=== PATIENT | female | born 1965 | race Caucasian/White ===

== ENCOUNTER → 2018-06-30 | Outpatient (CLI) | payer BC, OTHER ==
[~2018-06-30] VITALS: Ht 170.2 cm; Wt 140.6 kg
[~2018-06-30] MED LIST: DULOXETINE HCL30 MG PO; HYDROCODON-ACE1 EAC8 PO; HYDROCODONE-AP1 EA11 PO; MOBIC15 MG PO; NORCO 7.5-3251 EACH PO; OXYCONTIN10 M1 PO; SYNTHROID125 MC1 PO
[2018-06-30 13:52] VITALS: BP 131/88
--- NOTE | 2018-06-30 14:08 | NUR ---
Pain Clinic Assessment: 1. History of Osteoarthritis: History of Rheumatoid Arthritis: 2. Height: 5 ft. 7 in. 170.2 cm. Weight: 310.0 lb. oz. 140.616 kg. Patient's BMI: 48.5 3. Vital Signs: BP: 131/88 Pulse: 110 Resp: 16 Temp: 02 Sat: 97 ECG Mon: 4. Pain Intensity: 4-5 5. Fall Risk: Dizziness: N Needs help standing or walking: N Fallen in the last 3 months: N Fall risk comments: 6. Patient on Blood Thinner: None 7. History of Hypertension: N 8. Opioid Therapy greater than 6 weeks: Y Opiate Contract Signed: 06/30/18 9. Risk Assessment Tool Provided: 1-LOW 10. Functional Assessment Tool: 36 11. Recreational Drug Use: Never Drug Type: Tobacco Use: Never Smoker Tobacco Type: Amount or Packs/day: How Many Years: Alcohol Use: Yes Frequency: Special Occasions Quant: 1-2 TIMES A YEAR
== END ==
LOC: PAIN 13:38
DX: M54.5 Low back pain (principal); R07.81 Pleurodynia; M79.604 Pain in right leg; M79.605 Pain in left leg; Z79.899 Other long term (current) drug therapy

== ENCOUNTER → 2018-09-27 | Outpatient (CLI) | payer BC, OTHER ==
[~2018-09-27] VITALS: Ht 170.2 cm; Wt 148.7 kg
[~2018-09-27] MED LIST changes: +CALCIUM 600 +1 EAC1 PO; +HYDROCODON-ACE1 EAC5 PO
[2018-09-27 10:02] VITALS: BP 148/83
--- NOTE | 2018-09-27 10:26 | NUR ---
Pain Clinic Assessment: 1. History of Osteoarthritis: Not Applicable History of Rheumatoid Arthritis: Not Applicable 2. Height: 5 ft. 7 in. 170.2 cm. Weight: 327.8 lb. oz. 148.690 kg. Patient's BMI: 51.3 3. Vital Signs: BP: 148/83 Pulse: 101 Resp: 20 Temp: 02 Sat: 97 ECG Mon: 4. Pain Intensity: 3-4 5. Fall Risk: Dizziness: N Needs help standing or walking: N Fallen in the last 3 months: N Fall risk comments: 6. Patient on Blood Thinner: None 7. History of Hypertension: N 8. Opioid Therapy greater than 6 weeks: Y Opiate Contract Signed: 06/30/18 9. Risk Assessment Tool Provided: 1-LOW 10. Functional Assessment Tool: 36 11. Recreational Drug Use: Never Drug Type: Tobacco Use: Never Smoker Tobacco Type: Amount or Packs/day: How Many Years: Alcohol Use: Yes Frequency: Special Occasions Quant: 1-2
--- NOTE | 2018-09-28 08:37 | HPC ---
[facility] [place] [address] PAIN MANAGEMENT CONSULTATION Name: DANNYMISTY [id number] Admission: 09/27/18 ������������������ Attend Phys: Nydia Yi Discharge: ������������������ Date of : 61 Report #: [id number] THIS REPORT FOR: //name// CC: Nydia Yi FAM unknown Physician staff DATE OF SERVICE: 09/27/2018 CHIEF COMPLAINT: Chronic low back pain and bilateral knee pain with osteoarthritis. HISTORY OF PRESENT ILLNESS: This is a very pleasant 53-year-old female who returned to the pain clinic today for discussion of her medications. In June, when she saw Dr. Jacob Barreto, it was decided to taper off her OxyContin. The patient tells me that she is doing fairly reasonable with this decrease, but wondering if she is able to take 10 mg of hydrocodone during the day and 7.5 mg at night. She tells me that she is requiring one and half of her 7.5 several times a day to help get her through her active period. She tells me she did have one month where she was taking one and a half pills 3 times a day and ran out and did go through withdrawal. She had an increased heart rate, did see her primary care doctor who sent her for an echocardiogram, which was normal. The patient then realized that it was probably withdrawal symptoms that were causing all this, not a cardiac event. Since that episode, she has been more careful of taking her medicine more prescribed, but is having increased pain throughout the day and less pain at night, so she is here wondering if we could adjust her dose to prevent withdrawals and keep her active throughout the day. The patient tells me that her pain score is 3-4 today, mostly in her left knee, but does have pain also in her right. She tells me that she is seeing her orthopedic doctor next week. She has had Synvisc injections in knees that have been helpful and is seeking options for other treatment methods for her knees. ALLERGIES: MORPHINE, SULFA, BACTRIM. CURRENT MEDICATIONS: Caltrate 600, vitamin D, hydrocodone 7.5 tablets/325 p.r.n., meloxicam 15 mg daily, Cymbalta 90 mg daily, Synthroid 125 mcg daily. PQRS: 1. Osteoarthritis in her bilateral knees. Denies rheumatoid arthritis. 2. Height is 5 feet 7 inches, weight is 327. BMI is 51. 3. Vital signs: Blood pressure 148/83, pulse is 101, respirations 20, oxygen sat is 97. 4. Pain score 3/4. 5. Denies dizziness. Does not need help walking or standing. Has not fallen in the last 3 months. 6. Blood thinners, she denies and does not take hypertensive medicines. [facility] [address] [place] [address] PAIN MANAGEMENT CONSULTATION Name: DANNYMISTY Room #: REG CL[facility] Ornelas#: [id number] Admission: 09/27/18 ������������������ Attend Phys: Nydia Yi Discharge: ������������������ Date of : 61 Report #: [id number] 7. Opioid therapy is greater than 6 weeks; therefore, an opioid signed contract is on the chart. 8. Her risk assessment tool is low. Her functional assessment is 36. 9. Recreational drug use, she denies. She is not a smoker and occasionally drinks alcohol. We did check the prescription monitoring system. The patient is filling appropriately with her current medications. She did bring her prescription pill bottle with her today and has 58 of hydrocodone 7.5 left. The patient tells me she does safeguard her medications. PHYSICAL EXAMINATION: GENERAL: This is a very pleasant, alert and orientated female who appears her stated age who is morbidly obese, BMI of 51. HEENT: Normocephalic, atraumatic. Extraocular eye muscles are intact. Mucous membranes are moist. EXTREMITIES: The patient moves from sitting to standing positions. She walks with an antalgic gait, mostly due to pain in her knees. She describes this as a continuous aching sensation that is tender to touch. No effusion or swelling noted. ASSESSMENT: 1. Chronic intractable low back pain. 2. Chronic intractable osteoarthritis involving bilateral knees. 3. History of breast cancer. 4. Management of high risk medication under terms of written opioid agreement. We reviewed the fact that opiate medications are being used to provide analgesia adequate to support activities of daily living, not attempting to achieve a specific pain score on the 0-10 Visual Analog Scale. The current opiate medications are providing sufficient analgesia to allow the patient to participate in activities of daily living. The patient is not exhibiting any aberrant behavior suggestive of drug diversion. The patient is not having any adverse reactions to medications. The patient is not suffering from daytime somnolence or mental acuity changes. The patient is managing opiate-induced constipation with appropriate erdk-ifo-hxknrxq agents and dietary considerations. The patient was counseled on concern for caution with operating a motor vehicle while using opiate medications. A physical exam was performed and the patient's functional status was evaluated. All patients with back pain were advised against the bed rest greater than 4 days and were advised to return to normal activities. Pain score assessment was noted and the treatment plan was reviewed with the patient. All current medications, both prescribed and OTC were reviewed and reconciled on the electronic medical record. Tobacco screening was accomplished and smoking cessation was advised when indicated. BMI was noted and diet/exercise modification was recommended for all patients following outside normal parameters. [facility] [address] [place] [address] PAIN MANAGEMENT CONSULTATION Name: MISTY DELGADO [facility] #: [facility] [id number] Admission: 09/27/18 ������������������ Attend Phys: Nydia Yi Discharge: ������������������ Date of : 61 Report #: [id number] I reviewed with the patient today their responsibilities to safeguard prescription medications, reviewed their responsibility to utilize medications only as prescribed by the physician. They are to seek and receive pain medications only from 1 physician group ( [facility]). They are to use 1 pharmacy and keep the clinic informed if they change pharmacies. Their responsibilities include making followup visits in a timely fashion and to avoid abrupt discontinuation of medication usage. Their responsibilities further include bringing their medications (bottles from the pharmacy with residual pills) to the visit for possible confirmation of pill counts and the patient understands it is their responsibility to submit to random drug screens to ensure both that the medications prescribed are present, and that no other controlled substances are present. All prescriptions provided today were generated electronically. PLAN: 1. We discussed treatment options with the patient today. The patient tells me that she was able to decrease off her OxyContin, but still having some issues with pain during the day that is affecting her activities. She is here to request a change in her daily pain medicines. She came with a plan today of wondering if she could take two 10/325 hydrocodone during the day and one 7.5 mg at night. This would keep her below the current morphine mEq of 50, she would be at 27 morphine mEq per day. 2. I discussed with Dr. Barreto. We decided that the patient will be given hydrocodone 10/325, #60 for today and 4-week release. The patient is to continue to take her current 7.5 that she has at home for the next 2 months. The patient will return for a followup visit. At that time, we will start her on hydrocodone 10/325 three tablets a day, enabling her to take half or one tablet at bedtime, but continue her one tablet twice a day when she is active throughout her day. 3. The patient will go and see her orthopedic doctor to see if she is nearing to have replacement of her knees or what options he has for her other than the Synvisc injections that she is getting diminished results from. 4. The patient does tell me that she is set to have a breast augmentation surgery again in January and we will address her pain issues to dealing with her postop pain closer to that appointment. 5. The patient was seen by Dr. Jacob Barreto today who also collaborated care. ��������������������������������������������� <ELECTRONICALLY SIGNED> ���������������������������������������� By: Nydia Yi ��������������������������������������������� 09/28/18 0837 [id number] [id number] Nydia Yi /nusrat
== END ==
LOC: PAIN 07:05
DX: G89.29 Other chronic pain (principal); M54.5 Low back pain; M17.0 Bilateral primary osteoarthritis of knee; Z88.5 Allergy status to narcotic agent; Z88.2 Allergy status to sulfonamides; Z88.1 Allergy status to other antibiotic agents; Z79.899 Other long term (current) drug therapy; Z79.891 Long term (current) use of opiate analgesic; Z85.3 Personal history of malignant neoplasm of breast

== ENCOUNTER → 2018-11-15 | Outpatient (CLI) | payer BC, OTHER ==
[~2018-11-15] VITALS: Ht 170.2 cm; Wt 143.0 kg
[~2018-11-15] MED LIST changes: +CLONIDINE HCL0.1 MG PO; +VOLTAREN GEL 1100 G2 TOP
[2018-11-15 09:57] VITALS: BP 143/98
--- NOTE | 2018-11-15 10:08 | NUR ---
Pain Clinic Assessment: 1. History of Osteoarthritis: Not Applicable History of Rheumatoid Arthritis: Not Applicable 2. Height: 5 ft. 7 in. 170.2 cm. Weight: 315.2 lb. oz. 142.974 kg. Patient's BMI: 49.4 3. Vital Signs: BP: 143/98 Pulse: 119 Resp: 20 Temp: 02 Sat: 98 ECG Mon: 4. Pain Intensity: 6 5. Fall Risk: Dizziness: N Needs help standing or walking: N Fallen in the last 3 months: N Fall risk comments: 6. Patient on Blood Thinner: None 7. History of Hypertension: N 8. Opioid Therapy greater than 6 weeks: Y Opiate Contract Signed: 06/30/18 9. Risk Assessment Tool Provided: 1-LOW 10. Functional Assessment Tool: 36 11. Recreational Drug Use: Never Drug Type: Tobacco Use: Never Smoker Tobacco Type: Amount or Packs/day: How Many Years: Alcohol Use: Yes Frequency: Special Occasions Quant:
--- NOTE | 2018-11-16 14:31 | HPC ---
[facility] [address] [place] [address] PAIN MANAGEMENT CONSULTATION Name: DANNYMISTY [facility] [id number] Admission: 11/15/18 ������������������ Attend Phys: Nydia Yi Discharge: ������������������ Date of : 61 Report #: [id number] THIS REPORT FOR: //name// CC: Nydia Yi FAM unknown Physician staff DATE OF SERVICE: 11/15/2018 CHIEF COMPLAINT: Low back pain and bilateral knee pain with osteoarthritis. HISTORY OF PRESENT ILLNESS: This is a pleasant 53-year-old female who returns to the pain clinic today. She tells us that she is out of her medications. She ran out yesterday. She tells me that her pain had increased in her knees and she was requiring more pain pills. Today, her pain is a 6/10, mostly a constant achy tenderness feeling in her knees, worse with activity and better with rest and medication. She tells me that she has not experienced any withdrawal symptoms currently such as elevated heart rate or nausea or diarrhea. She tells me that some days because she was more active, she took more pain pills and she realized now that she should not have done that, is requesting medication fill today. ALLERGIES: MORPHINE, BACTRIM. CURRENT LIST OF MEDICATIONS: Hydrocodone 10/325 p.r.n., Caltrate, Mobic 15 mg daily, duloxetine 90 mg daily and Synthroid 125 mcg daily. PQRS: 1. She has osteoarthritis in her bilateral knees. Denies any rheumatoid arthritis. 2. Height is 5 feet 7 inches, weight is 315, which is down 12 pounds from her last visit. BMI is 49.4. 3. Vital signs: Blood pressure 143/98, pulse is 119, respirations 20, oxygen sat is 98. 4. Pain score is 6/10. 5. Fall risk: Denies dizziness. Does not need help walking or standing and has not fallen in the last three months. 6. The patient is not on any blood thinners, does not take medicine for hypertension. 7. Opioid therapy is greater than six weeks; therefore, an opioid signed contract is on the chart. Risk assessment tool is low. Functional assessment is 36/70. 8. Recreational drug use: She denies. Not a smoker and occasionally drinks alcohol. We did check the prescription monitoring system. The patient is not due to fill [address] [address] PAIN MANAGEMENT CONSULTATION Name: MISTY DELGADO Room #: REG [facility] Ornelas#: [id number] Admission: 11/15/18 ������������������ Attend Phys: Nydia Yi Discharge: ������������������ Date of : 61 Report #: [id number] until about 2 weeks for her narcotics. There is an opioid agreement on the chart and we will check a urine drug screen in the future. PHYSICAL EXAMINATION: GENERAL: This is a very pleasant, alert and oriented female who is morbidly obese, placing her pain score today at 6/10. HEENT: Normocephalic, atraumatic. Extraocular eye muscles are intact. Mucous membranes are moist. EXTREMITIES: The patient walks with an antalgic gait due to pain in her knees. She moves from sitting to standing without any difficulty. No effusion or swelling noted in her bilateral knees, but they are tender to touch. IMPRESSION: 1. Chronic intractable low back pain. 2. Chronic intractable osteoarthritis involving bilateral knees. 3. History of breast cancer. 4. Management of high-risk medications under terms of written opioid agreement. We reviewed the fact that opiate medications are being used to provide analgesia adequate to support activities of daily living, not attempting to achieve a specific pain score on the 0-10 Visual Analog Scale. The current opiate medications are providing sufficient analgesia to allow the patient to participate in activities of daily living. The patient is not exhibiting any aberrant behavior suggestive of drug diversion. The patient is not having any adverse reactions to medications. The patient is not suffering from daytime somnolence or mental acuity changes. The patient is managing opiate-induced constipation with appropriate iyjq-zuc-eyzssqo agents and dietary considerations. The patient was counseled on concern for caution with operating a motor vehicle while using opiate medications. A physical exam was performed and the patient's functional status was evaluated. All patients with back pain were advised against the bed rest greater than 4 days and were advised to return to normal activities. Pain score assessment was noted and the treatment plan was reviewed with the patient. All current medications, both prescribed and OTC were reviewed and reconciled on the electronic medical record. Tobacco screening was accomplished and smoking cessation was advised when indicated. BMI was noted and diet/exercise modification was recommended for all patients following outside normal parameters. I reviewed with the patient today their responsibilities to safeguard prescription medications, reviewed their responsibility to utilize medications only as prescribed by the physician. They are to seek and receive pain medications only from 1 physician group ([facility]). They are to use 1 pharmacy and keep the clinic informed if they change pharmacies. Their [facility] [address] [place] [address] PAIN MANAGEMENT CONSULTATION Name: MISTY DELGADO Room #: REG CL Mio#: [id number] Admission: 11/15/18 ������������������ Attend Phys: Nydia Yi Discharge: ������������������ Date of : 61 Report #: [id number] responsibilities include making followup visits in a timely fashion and to avoid abrupt discontinuation of medication usage. Their responsibilities further include bringing their medications (bottles from the pharmacy with residual pills) to the visit for possible confirmation of pill counts and the patient understands it is their responsibility to submit to random drug screens to ensure both that the medications prescribed are present, and that no other controlled substances are present. All prescriptions provided today were generated electronically. PLAN: 1. We discussed treatment options with the patient today. The patient reminded that she is to take up to three tablets of her hydrocodone a day and she requires some days occasionally four that means other day, she is needing to take two pills. We gave her 90 pills for the month. I am unsure if her insurance will pay for a refill this early for her medications. She is not due until about 11/25/2018, therefore to prevent any withdrawal symptoms, we will give her clonidine 0.1 mg once a day. The patient instructed to keep an eye on her blood pressure. Currently, it is 143/98 and pulse 119. She should easily be able to tolerate the clonidine 0.1 mg, but if it does go low, then she is instructed to stop this medication. 2. Scripts given for hydrocodone 10/325, #90. This is a slight increase as discussed last visit from 10 in the morning, 10 midday and 7.5 at night. To make things easier with not using two prescriptions, we elected to give her under the guidance of Dr. Barreto hydrocodone 10/325 three times a day, so #90 given for release in a week and in four weeks and in eight weeks. This places the patient at 30 morphine mEq well under the CDC guidelines and also instructed the patient to take them as directed. 3. We discussed the patient's significant osteoarthritis in her knees. She has had injections in the past as well as Synvisc, which has not felt that they have been very helpful. She continues to try and lose weight and has lost 12 pounds since her last visit here. We discussed exercise and water aerobics or just walking in the water to help reduce the effect on her knees when walking. The patient tells me that she has been trying to get in the pool a little more since the summertime. 4. Scripts given also for Voltaren gel. The patient may use this up to four times a day on her bilateral knees and then take her meloxicam as needed. The patient will return in three months' time. 5. I have discussed this patient with Dr. Barreto and reviewed the chart for medication needs. He is available by phone if any additional collaboration is needed today. ��������������������������������������������� <ELECTRONICALLY SIGNED> ���������������������������������������� By: Nydia Yi ��������������������������������������������� 11/16/18 1431 [id number] 1444 Nydia Yi /nusrat
== END ==
LOC: PAIN 06:48
DX: M54.5 Low back pain (principal); M17.0 Bilateral primary osteoarthritis of knee; G89.29 Other chronic pain; Z85.3 Personal history of malignant neoplasm of breast; Z79.891 Long term (current) use of opiate analgesic; Z79.899 Other long term (current) drug therapy; Z88.5 Allergy status to narcotic agent

== ENCOUNTER → 2019-02-10 | Outpatient (CLI) | payer BC, OTHER ==
[~2019-02-10] VITALS: Ht 170.2 cm; Wt 144.7 kg
[~2019-02-10] MED LIST changes: +SYNTHROID112 MC1 PO; -SYNTHROID125 MC1 PO
[2019-02-10 11:18] VITALS: BP 145/100
--- NOTE | 2019-02-10 11:21 | NUR ---
Pain Clinic Assessment: 1. History of Osteoarthritis: Not Applicable History of Rheumatoid Arthritis: Not Applicable 2. Height: 5 ft. 7 in. 170.2 cm. Weight: 319.0 lb. oz. 144.698 kg. Patient's BMI: 50.0 3. Vital Signs: BP: 145/100 Pulse: 102 Resp: 16 Temp: 02 Sat: 96 ECG Mon: 4. Pain Intensity: 6 5. Fall Risk: Dizziness: N Needs help standing or walking: N Fallen in the last 3 months: N Fall risk comments: 6. Patient on Blood Thinner: None 7. History of Hypertension: N 8. Opioid Therapy greater than 6 weeks: Y Opiate Contract Signed: 06/30/18 9. Risk Assessment Tool Provided: 1-LOW 10. Functional Assessment Tool: 36 11. Recreational Drug Use: Never Drug Type: Tobacco Use: Never Smoker Tobacco Type: Amount or Packs/day: How Many Years: Alcohol Use: Yes Frequency: Quant:
--- NOTE | 2019-02-10 16:28 | HPC ---
[facility] [place] [address] PAIN MANAGEMENT CONSULTATION Name: DANNYMISTY Room #: REG [facility] Mio.#: [id number] Admission: 02/10/19 Attend Phys: Nydia Yi Discharge: Date of : 61 Report #: [id number] THIS REPORT FOR: //name// CC: Nydia Ochoa Physician staff HIREN JENSEN DATE OF SERVICE: 02/10/2019 CHIEF COMPLAINT: Low back pain and bilateral knee pain and osteoarthritis. HISTORY OF PRESENT ILLNESS: This is a very pleasant 53-year-old female who returns to the pain clinic today for refill of her medications that she uses to help treat her bilateral knee pain. She is reporting a pain score of 6/10 today, mostly constant achy pain, worse with activity, but better with rest and medications. She reports that she recently underwent a surgery at to have some breast tissue removed on her right breast several weeks ago, it does continue to drain clear drainage per her report. She has followed up with her surgeon about this continued drainage. The patient also reports that they did give her some oxycodone, which the office did call and report to us after her surgery. She also received some Toradol which was very beneficial in helping her knee pain and is requesting that medication today in place of her meloxicam. ALLERGIES: MORPHINE, BACTRIM. CURRENT LIST OF MEDICATIONS: Voltaren gel p.r.n., hydrocodone 10/325 up to 3 times a day, vitamin D3, meloxicam 15 mg daily, Cymbalta 90 mg daily and Synthroid 112 mcg daily. PQRS: 1. She has osteoarthritis in bilateral knees. She denies any rheumatoid arthritis. 2. Height is 5 feet 7 inches, weight is 313/15, BMI is 50. 3. Vital signs: Blood pressure 145/100, pulse is 102, respirations 16, and oxygen sat is 96. 4. Pain score is 6/10. 5. Denies dizziness, does not need help walking or standing, has not fallen in the last 3 months. 6. The patient is not on any blood thinners or medicine for hypertension. 7. Opioid therapy is greater than 6 weeks; therefore, an opiate signed contract is on the chart. Her risk assessment tool is low. Functional assessment is 36/70. 8. Recreational drug use, she denies. She is not a smoker and occasionally drinks alcohol. [address] [address] PAIN MANAGEMENT CONSULTATION Name: MISTY DELGADO [id number] Admission: 02/10/19 Attend Phys: Nydia Yi Discharge: Date of : 61 Report #: [id number] We did check the prescription monitoring system. The patient is filling appropriately from Dr. Barreto except for the medicines that she received postoperatively, which we were informed of by the office. We will check a random drug screen on this patient on her next visit as there is not one on the chart currently. According to the CDC guidelines, the patient is on 15 morphine mEq of medicine per day well below the CDC guidelines. PHYSICAL EXAMINATION: GENERAL: This is a very pleasant and alert and orientated female who is morbidly obese, placing her current pain score at 6/10 today. HEENT: Normocephalic, atraumatic. Extraocular eye muscles are intact. Mucous membranes are moist. BREASTS: I did not examine this per her report. She has small amounts of clear drainage coming from her recent surgery incision. It is covered with a dressing today. EXTREMITIES: The patient walks with antalgic gait. She has significant pain in her bilateral knees that are tender to the touch with no effusion or swelling noted in the bilateral knees today. She moves from sitting to standing without any difficulty. IMPRESSION: 1. Chronic intractable low back pain. 2. Chronic intractable osteoarthritis involving bilateral knees. 3. History of breast cancer. 4. Management of high risk medications under terms of written opioid agreement. We reviewed the fact that opiate medications are being used to provide analgesia adequate to support activities of daily living, not attempting to achieve a specific pain score on the 0-10 Visual Analog Scale. The current opiate medications are providing sufficient analgesia to allow the patient to participate in activities of daily living. The patient is not exhibiting any aberrant behavior suggestive of drug diversion. The patient is not having any adverse reactions to medications. The patient is not suffering from daytime somnolence or mental acuity changes. The patient is managing opiate-induced constipation with appropriate ihjr-qiu-jvfynyd agents and dietary considerations. The patient was counseled on concern for caution with operating a motor vehicle while using opiate medications. A physical exam was performed and the patient's functional status was evaluated. All patients with back pain were advised against the bed rest greater than 4 days and were advised to return to normal activities. Pain score assessment was noted and the treatment plan was reviewed with the patient. All current medications, both prescribed and OTC were reviewed and reconciled on the electronic medical record. Tobacco screening was accomplished and smoking cessation was advised when indicated. BMI was noted and diet/exercise [address] [address] PAIN MANAGEMENT CONSULTATION Name: MISTY DELGADO Room #: REG [facility] Ornelas#: [id number] Admission: 02/10/19 Attend Phys: Nydia Yi Discharge: Date of : 61 Report #: [id number] modification was recommended for all patients following outside normal parameters. I reviewed with the patient today their responsibilities to safeguard prescription medications, reviewed their responsibility to utilize medications only as prescribed by the physician. They are to seek and receive pain medications only from 1 physician group ( [facility]). They are to use 1 pharmacy and keep the clinic informed if they change pharmacies. Their responsibilities include making followup visits in a timely fashion and to avoid abrupt discontinuation of medication usage. Their responsibilities further include bringing their medications (bottles from the pharmacy with residual pills) to the visit for possible confirmation of pill counts and the patient understands it is their responsibility to submit to random drug screens to ensure both that the medications prescribed are present, and that no other controlled substances are present. All prescriptions provided today were generated electronically. PLAN: 1. We discussed treatment options with the patient today. The patient had requested Toradol in place of meloxicam. I explained to her that that is a medication that is only given in short term duration. Unfortunately, we cannot give her that for every day use. The patient states that her knees did not hurt at all when she was taking this Toradol, but will resume her meloxicam and her Voltaren gel as needed. Scripts given today for meloxicam 15 mg, #30 with 5 additional refills for her bilateral knee pain. 2. Hydrocodone 10/325, #90 given for today, 4-week and 8-week release. This again places her at 15 morphine mEq well below the CDC guidelines. 3. The patient is seen in collaboration today with Dr. Jacob Barreto who did see the patient as well. The patient will return in followup in 3 months for medications. <ELECTRONICALLY SIGNED> By: Nydia Yi 02/10/19 1628 1215 [id number] Nydia Yi /nt
== END ==
LOC: PAIN 02-03 09:18
DX: M17.0 Bilateral primary osteoarthritis of knee (principal); G89.4 Chronic pain syndrome; Z85.3 Personal history of malignant neoplasm of breast; Z79.891 Long term (current) use of opiate analgesic; Z88.8 Allergy status to other drugs, medicaments and biological substances; Z79.899 Other long term (current) drug therapy

== ENCOUNTER → 2019-03-28 | Outpatient (CLI) | payer BC, OTHER ==
[~2019-03-28] VITALS: Ht 170.2 cm; Wt 143.8 kg
--- NOTE | ~2019-03-28 | HPC ---
[facility] [place] [address] [place] [address] PAIN MANAGEMENT CONSULTATION Name: DANNYMISTY Room #: REG [facility] Mio.#: [id number] Admission: 03/28/19 Attend Phys: Jacob Barreto MD Discharge: Date of : 61 Report #: [id number] THIS REPORT FOR: //name// CC: Physician staff Jacob JENSEN DATE OF SERVICE: 03/28/2019 Followup visit for chronic low back pain with spondylosis and bilateral knee pain with severe osteoarthritis. The patient is in the pain clinic today for renewal of her pain medication. She is on opioid agreement providing her with oxycodone 10/325, #90 tablets per month. She finds that on several days this is inadequate. The duration of response to the medication is only 4-6 hours. This leaves her in a fair amount of pain later in the day. She tries to break the medications in half. She has been on opioids for a number of years, opioid tolerant. I reviewed records dating back to [address] Reis first initiated some therapies for her. I took over after he left town. Her MME at one time was 67.5. Her current MME is less than half of that. We had a discussion today about other aspects of treatment. She uses nonsteroidal anti-inflammatory gel Voltaren, but has found other anti-inflammatories unhelpful for her osteoarthritis. She uses vitamin D3 and takes Synthroid daily. She does not exercise. I have stressed the importance of daily walking, had a long discussion with her today about the benefits of this activity. She is morbidly obese as well with a BMI that is contributing clearly to her pain. Without regular daily movement, she will not see improvement in fact I would expect that she may see further increases in pain. PQRS REVIEW: 1. Positive for osteoarthritis, particularly of the knees where she has significant pain. 2. Vital Signs: Blood pressure is 123/80, heart rate is 108, respirations 18, O2 sat 96. 3. BMI 49.6. 4. Pain intensity is 7/10. 5. She has not fallen, nor would be considered a fall risk. 6. No blood thinners. 7. No hypertension. 8. Opioid agreement reinitiated in 06/2018. We have confirmed her use of medication through the prescription drug monitoring program. She did receive a prescription of opioid medication after a plastic surgery procedure. [address] [address] PAIN MANAGEMENT CONSULTATION Name: MISTY DELGADO Josh Room #: REG [facility] Ornelas#: [id number] Admission: 03/28/19 Attend Phys: Jacob Barreto MD Discharge: Date of : 61 Report #: [id number] 9. Risk assessment tool for addiction is 1, considered low. 10. Functional assessment score is 36/70 suggesting qoccgeqq-et-wbwelv interference of day-to-day activities. 11. She denies use of tobacco, drinks alcohol occasionally in social setting. PHYSICAL EXAMINATION: She is mildly depressed. Vital signs are as noted above. She moves independently from sitting to standing position. Her gait is markedly antalgic. I examined the scars from her chest from previous surgery. She reports that she may have a retained drain. I could not palpate it. She does have some healing eschar without drainage. I have instructed her to use Bactroban ointment on these. Otherwise appeared to be healing well. There is no evidence of infection. IMPRESSION: 1. Chronic intractable pain secondary to osteoarthritis of the knees bilaterally. 2. Lumbar spondylosis. 3. Chronic intractable pain with opioid agreement. I have agreed to allow her 105 tablets per month. This will give her an additional pill to take on the bad days. We will try to continue to keep her at the lowest effective dose. RECOMMENDATION: I stressed that opioids are not the only answer for her pain that she must take some active role and remaining physically mobile. She is disabled, no longer working and no longer has children in the home. 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 She should have time to be able to initiate some self-directed therapies, both physical, emotional and spiritual to help her with her chronic symptoms. Followup visit planned in 2 months. Prescriptions were initiated for the higher dose. By: [id number] Jacob Barreto MD /nt
[2019-03-28 12:58] VITALS: BP 123/80
--- NOTE | 2019-03-28 12:59 | NUR ---
Pain Clinic Assessment: 1. History of Osteoarthritis: Not Applicable History of Rheumatoid Arthritis: Not Applicable 2. Height: 5 ft. 7 in. 170.2 cm. Weight: 317.0 lb. oz. 143.791 kg. Patient's BMI: 49.6 3. Vital Signs: BP: 123/80 Pulse: 108 Resp: 18 Temp: 02 Sat: 96 ECG Mon: 4. Pain Intensity: 7 5. Fall Risk: Dizziness: N Needs help standing or walking: N Fallen in the last 3 months: N Fall risk comments: 6. Patient on Blood Thinner: None 7. History of Hypertension: N 8. Opioid Therapy greater than 6 weeks: Y Opiate Contract Signed: 06/30/18 9. Risk Assessment Tool Provided: 1-LOW 10. Functional Assessment Tool: 11. Recreational Drug Use: Never Drug Type: Tobacco Use: Never Smoker Tobacco Type: Amount or Packs/day: How Many Years: Alcohol Use: Yes Frequency: Quant:
== END ==
LOC: PAIN 06:51
DX: M17.0 Bilateral primary osteoarthritis of knee (principal); M47.816 Spondylosis without myelopathy or radiculopathy, lumbar region; G89.4 Chronic pain syndrome; Z88.8 Allergy status to other drugs, medicaments and biological substances; Z79.899 Other long term (current) drug therapy

== ENCOUNTER → 2019-05-24 | Outpatient (CLI) | payer BC, OTHER ==
[~2019-05-24] VITALS: Ht 170.2 cm; Wt 147.1 kg
[~2019-05-24] MED LIST changes: +TIROSINT125 MCG PO
[2019-05-24 13:22] VITALS: BP 128/89
--- NOTE | 2019-05-24 13:46 | NUR ---
Pain Clinic Assessment: 1. History of Osteoarthritis: Not Applicable History of Rheumatoid Arthritis: Not Applicable 2. Height: 5 ft. 7 in. 170.2 cm. Weight: 324.2 lb. oz. 147.057 kg. Patient's BMI: 50.8 3. Vital Signs: BP: 128/89 Pulse: 119 Resp: 14 Temp: 02 Sat: 97 ECG Mon: 4. Pain Intensity: 2 5. Fall Risk: Dizziness: N Needs help standing or walking: N Fallen in the last 3 months: N Fall risk comments: 6. Patient on Blood Thinner: None 7. History of Hypertension: N 8. Opioid Therapy greater than 6 weeks: Y Opiate Contract Signed: 06/30/18 9. Risk Assessment Tool Provided: 1-LOW 10. Functional Assessment Tool: 11. Recreational Drug Use: Never Drug Type: Tobacco Use: Never Smoker Tobacco Type: Amount or Packs/day: How Many Years: Alcohol Use: Yes Frequency: Special Occasions Quant:
--- NOTE | 2019-05-25 08:34 | HPC ---
[facility] [place] [place] [address] PAIN MANAGEMENT CONSULTATION Name: DANNYROBBYMISTY Josh [id number] Admission: 05/24/19 Attend Phys: Nydia Yi Discharge: Date of : 61 Report #: [id number] THIS REPORT FOR: //name// CC: Nydia Yi Physician staff Jacob Mahajan DATE OF SERVICE: 05/24/2019 CHIEF COMPLAINT: Chronic low back pain with spondylosis and bilateral knee pain and severe osteoarthritis. HISTORY OF PRESENT ILLNESS: This is a 53-year-old female who returns to the pain clinic today reporting that she is doing quite well on her current medication regimen, rating her pain score at 2/10. Her pain is located in her back and her bilateral knees. She occasionally does complain of some right chest wall pain from previous mastectomy. The patient reports that taking half a pill of hydrocodone at a time with a max of 4 total pills a day is beneficial. Most days, she is able to get by with fewer pain pills. She denies problems with constipation or daytime sleepiness. She reports that she does have increased pain with activity and walking, but again finds the medication very beneficial and would like refills of this medicine today. ALLERGIES: MORPHINE, BACTRIM. CURRENT LIST OF MEDICATIONS: Levothyroxine 125 mcg daily, hydrocodone 10/325 p.r.n., meloxicam p.r.n., diclofenac gel, Caltrate and duloxetine 90 mg daily. PQRS: 1. She has severe osteoarthritis in her bilateral knees. Denies any rheumatoid arthritis. 2. Height is 5 feet 7 inches, weight is 324, BMI is 50. 3. Vital signs: Blood pressure 128/89, pulse is 119, respirations 14, oxygen sat is 97. 4. Pain score is 2/10. 5. Denies dizziness, does not need help walking or standing, has not fallen in the last 3 months. 6. The patient is not on any blood thinners or medicine for hypertension. 7. Opioid therapy is greater than 6 weeks; therefore, an opioid signed contract is on the chart. Risk assessment is low. Functional assessment is 36/70. 8. Recreational drug use, she denies. She is not a smoker and occasionally drinks alcohol. According to the prescription monitoring system, the patient is filling [address] [address] PAIN MANAGEMENT CONSULTATION Name: MISTY DELGADO Room #: REG [facility] Johnson#: [id number] Admission: 05/24/19 Attend Phys: Nydia Yi Discharge: Date of : 61 Report #: [id number] appropriately for her medications in a timely fashion. She is due this weekend for her medications. We will check a random drug screen on her today. Her current morphine milliequivalent dose is 30-40 per day, well below the CDC guidelines. PHYSICAL EXAMINATION: GENERAL: This is alert and orientated, upbeat female today, placing her pain score at 2/10. She is alert and orientated. HEENT: Normocephalic, atraumatic. Extraocular eye muscles are intact. Mucous membranes are moist. MUSCULOSKELETAL: She moves independently from sitting to standing position. She has a slight antalgic gait. She has pain and tenderness in her bilateral knees with no swelling or effusion noted, but tender to the touch. IMPRESSION: 1. Chronic intractable low back pain. 2. Chronic severe osteoarthritis involving bilateral knees. 3. History of breast cancer. 4. Lumbar spondylosis. 5. Complex medical management under terms of written opioid agreement. PLAN: 1. We discussed treatment options with the patient today. The patient finds taking half a pill at a time of her hydrocodone up to a max of 4 total pills a day very beneficial. She does report that the pharmacy did not give her [address] Barreto gave her last month, though they gave her 90 pills of her previous scripts were. She has been utilizing the medicines as he prescribed and will be out this weekend. She is wondering if there is a way to alter that prescription again. She finds this very beneficial and her pain score has decreased and she has been more active with this slightly increased dose. 2. We will E-prescribe medications today of hydrocodone 10/325, #105 for 30 days for today and 4-week release. 3. The patient does deny any daytime somnolence or constipation from this medication. The patient is seen in collaboration today with Dr. Jacob Barreto. The patient will return in 2 months. <ELECTRONICALLY SIGNED> By: Nydia Yi 05/25/19 0834 [id number] [id number] Nydia Yi /nusrat
== END ==
LOC: PAIN 08:21
DX: M17.0 Bilateral primary osteoarthritis of knee (principal); M47.816 Spondylosis without myelopathy or radiculopathy, lumbar region; Z85.3 Personal history of malignant neoplasm of breast; Z79.891 Long term (current) use of opiate analgesic

== ENCOUNTER → 2019-07-14 | Outpatient (CLI) | payer BC, OTHER ==
[~2019-07-14] VITALS: Ht 170.2 cm; Wt 147.1 kg
[2019-07-14 11:13] VITALS: BP 139/100
--- NOTE | 2019-07-14 11:32 | NUR ---
Pain Clinic Assessment: 1. History of Osteoarthritis: Not Applicable History of Rheumatoid Arthritis: Not Applicable 2. Height: 5 ft. 7 in. 170.2 cm. Weight: 324.2 lb. oz. 147.057 kg. Patient's BMI: 50.8 3. Vital Signs: BP: 139/100 Pulse: 95 Resp: 20 Temp: 02 Sat: 99 ECG Mon: 4. Pain Intensity: 4 5. Fall Risk: Dizziness: N Needs help standing or walking: N Fallen in the last 3 months: N Fall risk comments: 6. Patient on Blood Thinner: None 7. History of Hypertension: N 8. Opioid Therapy greater than 6 weeks: Y Opiate Contract Signed: 06/30/18 9. Risk Assessment Tool Provided: 1-LOW 10. Functional Assessment Tool: 11. Recreational Drug Use: Never Drug Type: Tobacco Use: Never Smoker Tobacco Type: Amount or Packs/day: How Many Years: Alcohol Use: Yes Frequency: Quant:
--- NOTE | 2019-07-15 11:04 | HPC ---
[facility] [place] [address] PAIN MANAGEMENT CONSULTATION Name: MISTY DELGADO Room #: REG [facility]..#: [id number] Admission: 07/14/19 Attend Phys: Nydia Yi Discharge: Date of : 61 Report #: [id number] THIS REPORT FOR: cc: HIREN JENSEN Physician not on staff Nydia Yi ~ THIS REPORT FOR: //name// CC: Nydia Yi Physician staff HIREN JENSEN DATE OF SERVICE: 07/14/2019 CHIEF COMPLAINT: Chronic low back pain with spondylosis and bilateral knee pain, and severe osteoarthritis. HISTORY OF PRESENT ILLNESS: This is a pleasant 53-year-old female who returns to the pain clinic today for a refill of her hydrocodone that she uses for her ongoing chronic pain issues. Today, she reports a pain score of 4/10. She reports that most of her pain is in her back and knees, but she also is experiencing right rib chest pain from her recent surgery. She feels that the wound is not healing properly and that has been bothersome. She states that her pain is an aching, tender feeling. Her knee pain is worse with any activity or walking. She does believe that the hydrocodone has been beneficial; she currently is taking 3 to 4 tablets a day. She is going to try over the next few months to decrease back to 3 tablets a day. She is going to buy knee braces for her bilateral knees and try to start walking more as the weather improves to help her lose weight. ALLERGIES: MORPHINE, BACTRIM. CURRENT LIST OF MEDICATIONS: Hydrocodone 10/325 two to 3 times a day, levothyroxine, Mobic, Voltaren gel, calcium, Cymbalta. PQRS: 1. She has osteoarthritis in her knees. Denies any rheumatoid arthritis. 2. Height is 5 feet 7 inches, weight is 324, BMI is 50. 3. Vital signs; blood pressure 139/100, pulse is 95, respirations 20, oxygen sat is 99. 4. Pain score is 4/10. 5. Denies dizziness. Does not need help walking. Has not fallen in the last 3 months. 6. Denies any blood thinners or medicines for hypertension. Her opioid therapy is greater than 6 weeks; therefore, an opioid signed contract is on the chart. Risk assessment tool is low. Functional assessment is 36/70. [address] [address] PAIN MANAGEMENT CONSULTATION Name: MISTY DELGADO Josh Room #: REG [facility] Ornelas#: [id number] Admission: 07/14/19 Attend Phys: Nydia Yi Discharge: Date of : 61 Report #: [id number] 7. Recreational drug use, she denies. She is not a smoker and occasionally drinks alcohol. According to the prescription monitoring system, the patient is filling appropriately for her medications. There is a recent drug screen on the chart that is appropriate as well. According to the CDC guidelines, her morphine mEq is 30 to 40 per day. PHYSICAL EXAMINATION: GENERAL: This is an alert and orientated female who is morbidly obese, placing her current pain score at 4/10. Her affect is appropriate. HEENT: Normocephalic, atraumatic. Extraocular eye muscles are intact. Mucous membranes are moist. CHEST: She does have open lesions on her right chest wall from previous surgeries. No drainage is noted today, slightly reddened. MUSCULOSKELETAL: She moves independently from sitting to standing position. She has antalgic gait. She has pain and tenderness in her bilateral knees with no effusion or swelling noted today. She has tenderness in her lumbosacral region of her back. IMPRESSION: 1. Chronic intractable low back pain. 2. Severe osteoarthritis involving bilateral knees. 3. History of breast cancer. 4. Lumbar spondylosis. 5. Complex medical management under terms of written opioid agreement. We reviewed the fact that opiate medications are being used to provide analgesia adequate to support activities of daily living, not attempting to achieve a specific pain score on the 0-10 Visual Analog Scale. The current opiate medications are providing sufficient analgesia to allow the patient to participate in activities of daily living. The patient is not exhibiting any aberrant behavior suggestive of drug diversion. The patient is not having any adverse reactions to medications. The patient is not suffering from daytime somnolence or mental acuity changes. The patient is managing opiate-induced constipation with appropriate aaky-hfl-cujhcsn agents and dietary considerations. The patient was counseled on concern for caution with operating a motor vehicle while using opiate medications. PLAN: 1. We discussed treatment options with the patient today. The patient is having to pay steven for her 105 hydrocodone pills since her insurance plan is only allowing 90 pills of hydrocodone per month, even with our attempt to do a prior authorization. The patient is willing to pay steven for this medicine again for 2 months; hopefully, after that time period, her pain will have subsided. She will be able to exercise more with the weather, getting better for her to [facility] [address] [place] [address] PAIN MANAGEMENT CONSULTATION Name: MISTY DELGADO Room #: REG [facility] Lieberman.#: [id number] Admission: 07/14/19 Attend Phys: Nydia Yi Discharge: Date of : 61 Report #: [id number] walk outside. She is hopeful to lose some weight in order to be able to have knee surgery so, then, she will hopefully be able to decrease back to 90 pills. This is her plan, so we will continue her dose at 10/325, #105 for 2 additional months. These will be sent electronically by Dr. Jacob Barreto. She is not needing her other medicines that we prescribed for her today. 2. The patient will return in 2 months. I encouraged her to call her oncologist to try and have a referral to the wound clinic at , who she has seen in the past, to address her open incision site of her right breast. She verbalized she will call them today. <ELECTRONICALLY SIGNED> By: Nydia Yi 07/15/19 1104 1206 1357 Nydia Yi /nt
== END ==
LOC: PAIN 05-23 07:27
DX: M17.0 Bilateral primary osteoarthritis of knee (principal); M47.816 Spondylosis without myelopathy or radiculopathy, lumbar region; Z85.3 Personal history of malignant neoplasm of breast; Z88.2 Allergy status to sulfonamides; Z88.6 Allergy status to analgesic agent; Z79.899 Other long term (current) drug therapy

== ENCOUNTER → 2019-09-15 | Outpatient (CLI) | payer BC, OTHER | LOC: PAIN 07:49 | DX: M47.816 Spondylosis without myelopathy or radiculopathy, lumbar region (principal); M19.90 Unspecified osteoarthritis, unspecified site; M17.0 Bilateral primary osteoarthritis of knee; F11.20 Opioid dependence, uncomplicated; Z88.5 Allergy status to narcotic agent; Z88.8 Allergy status to other drugs, medicaments and biological substances; Z85.3 Personal history of malignant neoplasm of breast ==

== ENCOUNTER → 2019-11-10 | Outpatient (CLI) | payer BC, OTHER ==
[~2019-11-10] VITALS: Ht 170.2 cm; Wt 149.9 kg
[~2019-11-10] MED LIST changes: +FLEXERIL PO; +MELOXICAM15 MG PO; +TIROSINT112 MCG PO; -TIROSINT125 MCG PO
[2019-11-10 14:21] VITALS: BP 139/87
--- NOTE | 2019-11-10 14:35 | NUR ---
Pain Clinic Assessment: 1. History of Osteoarthritis: KNEES History of Rheumatoid Arthritis: DENIES 2. Height: 5 ft. 7 in. 170.2 cm. Weight: 330.4 lb. oz. 149.869 kg. Patient's BMI: 51.7 3. Vital Signs: BP: 139/87 Pulse: 103 Resp: 18 Temp: 02 Sat: 97 ECG Mon: 4. Pain Intensity: 4 5. Fall Risk: Dizziness: N Needs help standing or walking: N Fallen in the last 3 months: N Fall risk comments: 6. Patient on Blood Thinner: None 7. History of Hypertension: N 8. Opioid Therapy greater than 6 weeks: Y Opiate Contract Signed: 06/30/18 9. Risk Assessment Tool Provided: 1-LOW 10. Functional Assessment Tool: 11. Recreational Drug Use: Never Drug Type: Tobacco Use: Never Smoker Tobacco Type: Amount or Packs/day: How Many Years: Alcohol Use: Yes Frequency: Quant:
--- NOTE | 2019-11-11 09:14 | HPC ---
[place] [address] PAIN MANAGEMENT CONSULTATION Name: MISTY DELGADO [id number] Admission: 11/10/19 Attend Phys: Nydia Yi Discharge: Date of : 61 Report #: [id number] THIS REPORT FOR: cc: HIREN JENSEN Physician not on staff Nydia Yi ~ CC: Steve Barreto MD DATE OF SERVICE: 11/10/2019 CHIEF COMPLAINT: Chronic low back pain with spondylosis, bilateral knee pain with osteoarthritis. HISTORY OF PRESENT ILLNESS: This is a pleasant 54-year-old female who returns to the pain clinic today for refill of her medications. Today, she is reporting a pain score of 4/10 stating she had a flare last week, she did see her primary care doctor on Thursday because she was having muscle spasms and tension in her upper back. He did prescribe some Flexeril for her as well as physical therapy, which she has not yet started, but she states that she already feels better from taking the Flexeril for several nights. She was able [place] around. She also feels that was beneficial in decreasing some of that pain. The patient normally sees us for her back and knee pain as well as some collarbone sternal pain from previous mastectomies. She is reporting that overall her pain medication is very beneficial in helping with this pain using her arms and movement does increase her pain, but her medication as well as heat and rest are helpful. She denies problems with constipation or daytime sleepiness. ALLERGIES: MORPHINE, BACTRIM. MEDICATIONS: Flexeril 10 mg at bedtime p.r.n., hydrocodone 10/325 up to 4 times a day p.r.n., levothyroxine, meloxicam, Voltaren gel, calcium, omeprazole, and duloxetine. PQRS: 1. She has arthritic changes in her knees. Denies any rheumatoid arthritis. 2. Height is 5 feet 7 inches, weight is 330, BMI is 51. Vital signs; blood pressure 139/87, pulse is 103, respirations 18, oxygen sat is 97%. 3. Pain score is 4/10. 4. Denies dizziness, does not need help walking or standing, has not fallen in the last 3 months. 5. The patient is not on any blood thinners or medicine for hypertension. 6. Her opioid therapy is greater than 6 weeks; therefore, an opioid signed contract is on the chart. Risk assessment tool is low. Functional assessment is 36/70. 7. Recreational drug use, she denies. She is [place] [address] PAIN MANAGEMENT CONSULTATION Name: DANNYMISTY Room #: REG CL Johnson#: [id number] Admission: 11/10/19 Attend Phys: Nydia Yi Discharge: Date of : 61 Report #: [id number] drinks alcohol. According to the prescription monitoring system, the patient is due to fill her medications this week, filling them in a timely fashion from one pharmacy. There is a recent drug screen on the chart that is appropriate as well. According to the CDC guidelines, her morphine mEq is 35 MMEs per day. PHYSICAL EXAMINATION: GENERAL: This is a well-developed, morbidly obese 54-year-old female who is alert and orientated, placing her current pain score at 4/10. HEENT: Normocephalic and atraumatic. Extraocular eye muscles are intact. She is wearing a mask. CHEST: She has mid sternum pain to the right that is tender from previous surgeries. MUSCULOSKELETAL: She moves independently from sitting to standing position. She does have an antalgic gait. She has tenderness in her paraspinal musculature of her thoracic spine and tenderness along the lumbosacral region as well. Pain is increased in her knees with standing, no edema, no effusion noted. IMPRESSION: 1. Chronic intractable low back pain. 2. Severe osteoarthritis involving her bilateral knees. 3. Myofascial pain. 4. History of breast cancer. 5. Lumbar spondylosis. 6. Complex medical management under terms of written opioid agreement. We reviewed the fact that opiate medications are being used to provide analgesia adequate to support activities of daily living, not attempting to achieve a specific pain score on the 0-10 Visual Analog Scale. The current opiate medications are providing sufficient analgesia to allow the patient to participate in activities of daily living. The patient is not exhibiting any aberrant behavior suggestive of drug diversion. The patient is not having any adverse reactions to medications. The patient is not suffering from daytime somnolence or mental acuity changes. The patient is managing opiate-induced constipation with appropriate okcs-fsx-[id number] agents and dietary considerations. The patient was counseled on concern for caution with operating a motor vehicle while using opiate medications. A physical exam was performed and the patient's functional status was evaluated. All patients with back pain were advised against the bed rest greater than 4 days and were advised to return to normal activities. Pain score assessment was noted and the treatment plan was reviewed with the patient. All current medications, both prescribed and OTC were reviewed and reconciled on the electronic medical record. Tobacco screening was accomplished and smoking [address] [address] PAIN MANAGEMENT CONSULTATION Name: MISTY DELGADO Room #: REG [facility]#: [id number] Admission: 11/10/19 Attend Phys: Nydia Yi Discharge: Date of : 61 Report #: [id number] cessation was advised when indicated. BMI was noted and diet/exercise modification was recommended for all patients following outside normal parameters. I reviewed with the patient today their responsibilities to safeguard prescription medications, reviewed their responsibility to utilize medications only as prescribed by the physician. They are to seek and receive pain medications only from 1 physician group ( [facility]). They are to use 1 pharmacy and keep the clinic informed if they change pharmacies. Their responsibilities include making followup visits in a timely fashion and to avoid abrupt discontinuation of medication usage. Their responsibilities further include bringing their medications (bottles from the pharmacy with residual pills) to the visit for possible confirmation of pill counts and the patient understands it is their responsibility to submit to random drug screens to ensure both that the medications prescribed are present, and that no other controlled substances are present. All prescriptions provided today were generated electronically. PLAN: 1. We discussed treatment options with the patient today. The patient finds her medications beneficial in controlling her pain with minimal side effects such as constipation or daytime sleepiness. Today, we will refill her hydrocodone 10/325, #105. This will be given for 3 months. These will be sent electronically to her [place] pharmacy by Dr. Jacob Barreto. 2. We will continue her on her meloxicam. The patient takes this on an as needed basis, but has been finding it more beneficial taking 15 mg once a day, quantity #30 with 5 additional refills sent to her pharmacy. 3. We will continue her Voltaren gel 4 gm, With 2 additional refills, I explained to the patient not to take the meloxicam and her for doses of Voltaren on the same day, encouraging her to use one or the other daily. She has found that the Voltaren gel is beneficial in helping with her knee pain. 5. We did discuss her myofascial pain that she has been experiencing in her upper thoracic spine. The Flexeril has been helpful. I encouraged her to go to physical therapy and learn the exercises that they will teacher and do those on a regular basis to minimize discomfort also to use heat in the shower to stretch and see if this is beneficial. 6. The patient will return in 3 months. The patient is seen in collaboration with Dr. Jacob Barreto. <ELECTRONICALLY SIGNED> By: Nydia Yi 11/11/19 0914 [id number] [id number] Nydia Yi /nusrat
== END ==
LOC: PAIN 07:02
DX: M47.816 Spondylosis without myelopathy or radiculopathy, lumbar region (principal); M17.0 Bilateral primary osteoarthritis of knee; Z88.5 Allergy status to narcotic agent; Z85.3 Personal history of malignant neoplasm of breast; Z79.899 Other long term (current) drug therapy; Z79.891 Long term (current) use of opiate analgesic

== ENCOUNTER → 2020-01-30 | Outpatient (CLI) | payer BC, OTHER ==
[~2020-01-30] VITALS: Ht 170.2 cm; Wt 141.1 kg
[~2020-01-30] MED LIST changes: +VOLTAREN GEL 1100 G1 TOP
[2020-01-30 09:29] VITALS: BP 152/91
--- NOTE | 2020-01-30 09:35 | NUR ---
Pain Clinic Assessment: 1. History of Osteoarthritis: KNEES BACK History of Rheumatoid Arthritis: DENIES 2. Height: 5 ft. 7 in. 170.2 cm. Weight: 311.0 lb. oz. 141.069 kg. Patient's BMI: 48.7 3. Vital Signs: BP: 152/91 Pulse: 92 Resp: 18 Temp: 02 Sat: 97 ECG Mon: 4. Pain Intensity: 5 5. Fall Risk: Dizziness: N Needs help standing or walking: N Fallen in the last 3 months: N Fall risk comments: 6. Patient on Blood Thinner: None 7. History of Hypertension: N 8. Opioid Therapy greater than 6 weeks: Y Opiate Contract Signed: 06/30/18 9. Risk Assessment Tool Provided: 1-LOW 10. Functional Assessment Tool: 11. Recreational Drug Use: Never Drug Type: Tobacco Use: Never Smoker Tobacco Type: Amount or Packs/day: How Many Years: Alcohol Use: Yes Frequency: Quant:
--- NOTE | 2020-01-30 14:51 | HPC ---
[facility] [place] [address] PAIN MANAGEMENT CONSULTATION Name: MISTY DELGADO Room #: REG [facility]..#: [id number] Admission: 01/30/20 Attend Phys: Nydia Yi Discharge: Date of : 61 Report #: [id number] THIS REPORT FOR: cc: HIREN JENSEN Physician not on staff Nydia Yi ~ CC: Jacob Barreto MD DATE OF SERVICE: 01/30/2020 CHIEF COMPLAINT: Chronic low back pain with spondylosis and bilateral knee pain. HISTORY OF PRESENT ILLNESS: This is a pleasant 54-year-old female who returns to the pain clinic today for refill of her medications. Today, she is reporting a pain score of 5/10. She has been having some GI issues with diarrhea for the last several weeks. She believes that some of her pain is increased due to abdominal pain and discomfort that she is feeling. She is going to try and see her primary care doctor this week regarding these issues. The patient reports that her normal pain in her knees and back has been fairly stable recently. She is hopeful to have her knees replaced next year, so she has started Weight Watchers since we have seen her. She has lost 19 pounds since her last visit. She believes this has helped reduce some of her pain in her knees. She continues to complain of low back pain as well and some sternal pain from her previous mastectomy. She reports her pain as an aching feeling, worse with activity and using her arms, but feels that the medication as well as rest and heat have been beneficial. Today, she would like refills of her medications. ALLERGIES: MORPHINE, BACTRIM. CURRENT LIST OF MEDICATIONS: Voltaren gel p.r.n., hydrocodone 10/325 p.r.n., meloxicam, levothyroxine, Caltrate and Cymbalta 60 mg daily. PQRS: 1. She has osteoarthritis in her knees and back. Denies any rheumatoid arthritis. 2. Height is 5 feet 7 inches, weight is 311, BMI is 48. Vital signs 152/91, pulse is 92, respirations 18, oxygen sat is 97%. 3. Pain score is 5/10. 4. Denies dizziness, does not need help walking or standing, has not fallen in the last 3 months. 5. The patient is not on any blood thinners or medicine for hypertension. Opioid therapy is greater than 6 weeks; therefore, an opioid signed contract is on the chart. Risk assessment tool is low. Functional assessment is 41/70. [address] [address] PAIN MANAGEMENT CONSULTATION Name: MISTY DELGADO Room #: REG [facility].#: [id number] Admission: 01/30/20 Attend Phys: Nydia Yi Discharge: Date of : 61 Report #: [id number] 6. Recreational drug use, she denies. She is not a smoker and occasionally drinks alcohol. According to the prescription monitoring system, the patient is filling appropriately for her medications in a timely fashion. She is due to fill these medications later this week. Her morphine mEq according to the CDC guidelines are 35. There is a drug screen on the chart that is appropriate for her medications. PHYSICAL EXAMINATION: GENERAL: This is alert and orientated 54-year-old female who is morbidly obese. She is alert and orientated, placing her current pain score at 5/10. HEENT: Normocephalic, atraumatic. Extraocular eye muscles are intact. Sclerae are non-intrinsic. She is wearing a mask. CHEST: She has midsternum pain that radiates to the right under her arm from previous surgeries with scar present. MUSCULOSKELETAL: Tenderness in bilateral knees with no edema noted. She has tenderness in the paraspinal musculature of the thoracic and lumbar spine, multiple muscle groups located. The patient moves independently from the sitting to standing position and has a slightly antalgic gait. IMPRESSION: 1. Chronic intractable low back pain. 2. Severe osteoarthritis involving bilateral knees. 3. Myofascial pain, fibromyalgia. 4. History of breast cancer. 5. Lumbar spondylosis. 6. Complex medical management under terms of written opioid agreement. PLAN: 1. We discussed treatment options with the patient today. The patient finds her medications very beneficial in controlling her pain. I encouraged her to use her Voltaren gel on her knees, especially when she has flares. It is now [id number] and the patient will attempt to purchase. We have written prescriptions in the past and we can refill it if we need to. 2. We will refill her hydrocodone 10/325, #105 pills for today for an 8-week release. These will be sent electronically by Dr. Jacob Barreto. 3. The patient is not needing her meloxicam today. She has several refills. She denies any GI upset from that medication despite her having diarrhea. She believes that she may have a bug. I encouraged her to seek an appointment with her primary care doctor, since has been ongoing for about 2 weeks and the patient reports she has lost 10 pounds in this time. The patient believes it may have been from the increased fiber she has been eating from her diet to lose weight. [address] [address] PAIN MANAGEMENT CONSULTATION Name: MISTY DELGADO Room #: REG [facility]#: [id number] Admission: 01/30/20 Attend Phys: Nydia Yi Discharge: Date of : 61 Report #: [id number] 4. The patient is seen in collaboration with Dr. Jacob Barreto. She will return in 3 months. <ELECTRONICALLY SIGNED> By: Nydia Yi 01/30/20 1451 [id number] 1150 Nydia Yi /nt
== END ==
LOC: PAIN 06:54
PROVIDERS: ATTEND Clinical Nurse Specialist Adult Health
DX: M47.816 Spondylosis without myelopathy or radiculopathy, lumbar region (principal); G89.29 Other chronic pain; M17.0 Bilateral primary osteoarthritis of knee; M79.10 Myalgia, unspecified site; F11.20 Opioid dependence, uncomplicated; Z88.8 Allergy status to other drugs, medicaments and biological substances; Z79.899 Other long term (current) drug therapy; Z85.3 Personal history of malignant neoplasm of breast

== ENCOUNTER → 2020-04-23 | Outpatient (CLI) | payer BC, OTHER ==
[~2020-04-23] VITALS: Ht 170.2 cm; Wt 139.3 kg
[2020-04-23 12:30] VITALS: BP 137/88
--- NOTE | 2020-04-23 12:31 | NUR ---
Pain Clinic Assessment: 1. History of Osteoarthritis: KNEES BACK History of Rheumatoid Arthritis: DENIES 2. Height: 5 ft. 7 in. 170.2 cm. Weight: 307.2 lb. oz. 139.345 kg. Patient's BMI: 48.1 3. Vital Signs: BP: 137/88 Pulse: 99 Resp: 18 Temp: 02 Sat: 96 ECG Mon: 4. Pain Intensity: 4 5. Fall Risk: Dizziness: N Needs help standing or walking: N Fallen in the last 3 months: N Fall risk comments: 6. Patient on Blood Thinner: None 7. History of Hypertension: N 8. Opioid Therapy greater than 6 weeks: Y Opiate Contract Signed: 06/30/18 9. Risk Assessment Tool Provided: 1-LOW 10. Functional Assessment Tool: 11. Recreational Drug Use: Never Drug Type: Tobacco Use: Never Smoker Tobacco Type: Amount or Packs/day: How Many Years: Alcohol Use: Yes Frequency: Quant:
--- NOTE | 2020-04-24 13:37 | HPC ---
[facility] [place] [address] PAIN MANAGEMENT CONSULTATION Name: DANNYMISTY Room #: REG [facility].#: [id number] Admission: 04/23/20 Attend Phys: Nydia Yi Discharge: Date of : 61 Report #: [id number] THIS REPORT FOR: cc: HIREN JENSEN Physician not on staff Nydia Yi ~ CC: Nydia Barreto MD DATE OF SERVICE: 04/23/2020 CHIEF COMPLAINT: Chronic low back pain with spondylosis and bilateral knee pain. HISTORY OF PRESENT ILLNESS: This is a very pleasant 54-year-old morbidly obese female who returns to the pain clinic today for refill of her medications that she uses to help treat her ongoing low back pain and chronic knee pain. Today, she is reporting her pain score 4/10. She continues to try to lose weight and has lost 4 pounds since our last visit, her weight is down significantly since November where she weighs 330, now she weighs 307, so down to 23 pounds. She is attempting to lose weight, so she may have knee replacement surgery. She states that the weather does increase her pain as well as activity, but she does try to be as active as she is able. She reports the Voltaren gel as well as her medications and resting have been very beneficial. Occasionally, she reports some sternal chest pain from her previous mastectomy, but feels that pain has resolved over time. ALLERGIES: MORPHINE, BACTRIM. CURRENT LIST OF MEDICATIONS: Hydrocodone 10/325 p.r.n., diclofenac gel, meloxicam, levothyroxine, calcium, and Cymbalta. PQRS: 1. She does have osteoarthritic changes in her back and knees. Denies rheumatoid arthritis. 2. Height is 5 feet 7 inches, weight is 307, BMI is 48. Vital signs; blood pressure 137/88, pulse is 99, respirations 18, oxygen sat is 96%. Pain score is 4/10. 3. Fall risk. Denies dizziness, does not need assistance with ambulation. Has not fallen in the last 3 months. The patient is not on any blood thinners or medicine for hypertension. 4. Her opioid therapy is greater than 6 weeks; therefore, an opioid signed contract is on the chart. Risk assessment is low. Functional assessment is 41/70. 5. Recreational drug use, she denies. She is not a smoker and occasionally drinks alcohol. [address] [address] PAIN MANAGEMENT CONSULTATION Name: DANNYROBBYMISTY Josh [facility] [id number] Admission: 04/23/20 Attend Phys: Nydia Yi Discharge: Date of : 61 Report #: [id number] According to the prescription monitoring system, the patient is filling appropriately in a timely fashion. Her urine drug screen was appropriate. We will recheck this at her next visit. PHYSICAL EXAMINATION: GENERAL: This is alert and orientated, morbidly obese 54-year-old female who appears her stated age, placing her current pain score at 4/10 today. HEENT: Normocephalic and atraumatic. Extraocular eye muscles are intact. Mucous membranes are moist. MUSCULOSKELETAL: She has tenderness in the thoracic region that does radiate into her upper lumbar area with no radicular symptoms. She has tenderness in her bilateral knees with no edema noted. The patient moves independently from the sitting to standing position and has an antalgic gait. IMPRESSION: 1. Chronic intractable low back pain. 2. Severe osteoarthritis involving bilateral knees. 3. Myofascial pain and fibromyalgia. 4. History of breast cancer. 5. Lumbar spondylosis. 6. Complex medical management under terms of written opioid agreement. We reviewed the fact that opiate medications are being used to provide analgesia adequate to support activities of daily living, not attempting to achieve a specific pain score on the 0-10 Visual Analog Scale. The current opiate medications are providing sufficient analgesia to allow the patient to participate in activities of daily living. The patient is not exhibiting any aberrant behavior suggestive of drug diversion. The patient is not having any adverse reactions to medications. The patient is not suffering from daytime somnolence or mental acuity changes. The patient is managing opiate-induced constipation with appropriate kbyj-zir-wlahllm agents and dietary considerations. The patient was counseled on concern for caution with operating a motor vehicle while using opiate medications. A physical exam was performed and the patient's functional status was evaluated. All patients with back pain were advised against the bed rest greater than 4 days and were advised to return to normal activities. Pain score assessment was noted and the treatment plan was reviewed with the patient. All current medications, both prescribed and OTC were reviewed and reconciled on the electronic medical record. Tobacco screening was accomplished and smoking cessation was advised when indicated. BMI was noted and diet/exercise modification was recommended for all patients following outside normal parameters. I reviewed with the patient today [facility] [address] [place] [address] PAIN MANAGEMENT CONSULTATION Name: MISTY DELGADO Room #: REG CL Mio#: [id number] Admission: 04/23/20 Attend Phys: Nydia Yi Discharge: Date of : 61 Report #: [id number] prescription medications, reviewed their responsibility to utilize medications only as prescribed by the physician. They are to seek and receive pain medications only from 1 physician group ( [facility]). They are to use 1 pharmacy and keep the clinic informed if they change pharmacies. Their responsibilities include making followup visits in a timely fashion and to avoid abrupt discontinuation of medication usage. Their responsibilities further include bringing their medications (bottles from the pharmacy with residual pills) to the visit for possible confirmation of pill counts and the patient understands it is their responsibility to submit to random drug screens to ensure both that the medications prescribed are present, and that no other controlled substances are present. All prescriptions provided today were generated electronically. PLAN: 1. We discussed treatment options with the patient today. She continues to lose weight slowly, but has lost 23 pounds since November. She is hopeful to continue to lose weight using Weight [employer], so that she may undergo bilateral knee replacements hopefully next year. 2. The patient finds her medications very beneficial and would like refills of her hydrocodone today. These will be sent electronically by Dr. Barreto, #90 for today for an 8-week release. 3. The patient has been utilizing Voltaren gel on her knees. She finds it is very beneficial. She does have meloxicam that we have offered to her in the past that she takes on an as needed basis. She does suffer from reflux, so therefore she does not take it on a daily basis. The patient denies any constipation issues from her opioids. 6. The patient will return in the clinic in 3 months. The patient is seen today in collaboration with Dr. Barreto. <ELECTRONICALLY SIGNED> By: Nydia Yi 04/24/20 1337 1502 0923 Nydia Yi /nt
== END ==
LOC: PAIN 07:00
PROVIDERS: ATTEND Clinical Nurse Specialist Adult Health
DX: M47.816 Spondylosis without myelopathy or radiculopathy, lumbar region (principal); M17.0 Bilateral primary osteoarthritis of knee; G89.4 Chronic pain syndrome; M79.7 Fibromyalgia; Z79.891 Long term (current) use of opiate analgesic

== ENCOUNTER → 2020-07-16 | Outpatient (CLI) | payer BC, OTHER ==
[~2020-07-16] VITALS: Ht 170.2 cm; Wt 139.2 kg
[~2020-07-16] MED LIST changes: +DRIZALMA SPRINK30 MG PO; +IBUPROFEN 200200 M1 PO
[2020-07-16 10:15] VITALS: BP 130/91
--- NOTE | 2020-07-16 10:29 | NUR ---
Pain Clinic Assessment: 1. History of Osteoarthritis: KNEES BACK History of Rheumatoid Arthritis: DENIES 2. Height: 5 ft. 7 in. 170.2 cm. Weight: 306.8 lb. oz. 139.164 kg. Patient's BMI: 48.0 3. Vital Signs: BP: 130/91 Pulse: 92 Resp: 18 Temp: 02 Sat: 98 ECG Mon: 4. Pain Intensity: 5-KNEES 3-BACK 5. Fall Risk: Dizziness: N Needs help standing or walking: N Fallen in the last 3 months: N Fall risk comments: 6. Patient on Blood Thinner: None 7. History of Hypertension: N 8. Opioid Therapy greater than 6 weeks: Y Opiate Contract Signed: 06/30/18 9. Risk Assessment Tool Provided: 1-LOW 10. Functional Assessment Tool: 11. Recreational Drug Use: Never Drug Type: Tobacco Use: Never Smoker Tobacco Type: Amount or Packs/day: How Many Years: Alcohol Use: Yes Frequency: Quant:
--- NOTE | 2020-07-17 08:13 | HPC ---
[facility] [address] [address] PAIN MANAGEMENT CONSULTATION Name: MISTY DELGADO Room #: REG CL M..#: [id number] Admission: 07/16/20 Attend Phys: Nydia Yi Discharge: Date of : 61 Report #: [id number] THIS REPORT FOR: cc: HIREN JENSEN Physician not on staff Nydia Yi ~ DATE OF SERVICE: 07/16/2020 CHIEF COMPLAINT: Chronic low back pain with spondylosis and bilateral knee pain. HISTORY OF PRESENT ILLNESS: This is a pleasant 54-year-old female who returns to the pain clinic today for refill of her medications to help treat her ongoing low back pain and chronic knee pain. Today, she is reporting a pain score of 3/10 in her back and 5/10 in her knees. She is morbidly obese and continues to try to lose weight, though her weight has remained stable since her last visit. The patient is stating that her knee pain is worse today. She is going to call her orthopedic doctor to discuss having a right total knee replaced. She would like to have that done prior to summer. She reports her and her are planning a trip their anniversary of 40 years and she would like to be able to walk without pain. She believes that her knees are more problematic than her back and would like to get that scheduled. The patient states that her pain is a dull aching that is worse with activity and weather changes. Overall, she believes the medication as well as Voltaren gel and resting are beneficial. She denies any problems with constipation or daytime somnolence as a result of her medications. ALLERGIES: MORPHINE, BACTRIM. CURRENT LIST OF MEDICATIONS: Ibuprofen, duloxetine, hydrocodone 10/325, Voltaren gel, levothyroxine, and calcium. PQRS: 1. She has osteoarthritic changes in her knees and spondylosis in her back. Denies any rheumatoid arthritis. 2. Height is 5 feet 7 inches, weight is 306. BMI is 48. 3. Vital signs 130/91, pulse is 92, respirations 18, oxygen sat is 98%. 4. Pain score is 3/10 in her back, 5/10 in her knees bilaterally. 5. Denies dizziness, does not need assistance with ambulation. Has not fallen in the last 3 months. 6. The patient is not on any blood thinners or medicine for hypertension. 7. Opioid therapy is greater than 6 weeks; therefore, an opioid signed contract is on the chart. Risk assessment is low. Functional assessment is 41/70. 8. Recreational drug use, she denies. She is not a smoker and occasionally drinks alcohol. [address] [address] PAIN MANAGEMENT CONSULTATION Name: MISTY DELGADO Room #: REG RICARDO Ornelas#: [id number] Admission: 07/16/20 Attend Phys: Nydia Yi Discharge: Date of : 61 Report #: [id number] According to the prescription monitoring system, the patient is filling appropriately for her medications. She is due to fill those this week. Her morphine mEq is 35 MME per day. We will check a random drug screen on this patient today. PHYSICAL EXAMINATION: GENERAL: This is alert and orientated, and morbidly obese 54-year-old who is a good historian, rating her pain score at 3-5 today depending on location. HEENT: Normocephalic, atraumatic. Extraocular eye muscles are intact. She is wearing a mask. MUSCULOSKELETAL: She has tenderness in her thoracic and lumbar region with no radicular symptoms. Tenderness in bilateral knees, greater on the right than the left with no edema noted. The patient has an antalgic gait, but moves independently from the seated to standing position using the armrest. IMPRESSION: 1. Chronic intractable low back pain. 2. Severe osteoarthritis involving bilateral knees, greater on the right than the left. 3. Myofascial pain with fibromyalgia. 4. History of breast cancer, greater than 5 years. 5. Spondylosis. 6. Complex medical management utilizing written opioid medications. We reviewed the fact that opiate medications are being used to provide analgesia adequate to support activities of daily living, not attempting to achieve a specific pain score on the 0-10 Visual Analog Scale. The current opiate medications are providing sufficient analgesia to allow the patient to participate in activities of daily living. The patient is not exhibiting any aberrant behavior suggestive of drug diversion. The patient is not having any adverse reactions to medications. The patient is not suffering from daytime somnolence or mental acuity changes. The patient is managing opiate-induced constipation with appropriate [id number] agents and dietary considerations. The patient was counseled on concern for caution with operating a motor vehicle while using opiate medications. PLAN: 1. We discussed treatment options with the patient today. The patient finds her medications very beneficial utilizing 3 hydrocodone tablets every day with an occasional fourth tablet as needed. The patient would like to continue on those current regimen. Scripts will be sent electronically by Dr. Barreto for today for an 8-week supply. 2. The patient is considering having her total knee replaced prior to our next visit. We did discuss tapering her medications prior to surgery to benefit postoperative pain control and to notify our office if she does have surgery and obtains a prescription from her surgeon. [address] [address] PAIN MANAGEMENT CONSULTATION Name: MISTY DELGADO Room #: REG [facility]#: [id number] Admission: 07/16/20 Attend Phys: Nydia Yi Discharge: Date of : 61 Report #: [id number] 3. We did discuss her ongoing weight loss program. The patient is hopeful that once she is able to convince the doctor, that she would like to have her first knee operated on. She feels like she will be in less pain and be more physically active, therefore enabling her to lose more weight prior to having her second knee replaced. She is planning a trip in December with significant walking, so she would like to have her first surgery done this spring. 4. The patient continues to utilize Voltaren gel on her knees that she buys [id number] and is not needing meloxicam any longer, which did cause some GI upset, but does occasionally very sporadically take ibuprofen. 5. The patient will see Dr. Barreto at her next visit. We did collect a random drug screen on her today. He collaborated care and sent prescriptions. <ELECTRONICALLY SIGNED> By: Nydai Yi 07/17/20 0813 [id number] Nydia Yi /nt
== END ==
LOC: PAIN 07:06
PROVIDERS: ATTEND Clinical Nurse Specialist Adult Health
DX: G89.29 Other chronic pain (principal); M17.0 Bilateral primary osteoarthritis of knee; M54.5 Low back pain; M45.9 Ankylosing spondylitis of unspecified sites in spine; Z68.42 Body mass index [BMI] 45.0-49.9, adult; Z88.8 Allergy status to other drugs, medicaments and biological substances; Z79.891 Long term (current) use of opiate analgesic; Z79.899 Other long term (current) drug therapy

== ENCOUNTER → 2020-10-08 | Outpatient (CLI) | payer BC, OTHER ==
[~2020-10-08] VITALS: Ht 170.2 cm; Wt 138.9 kg
[~2020-10-08] MED LIST changes: -TIROSINT112 MCG PO; +TIROSINT137 MCG PO
[2020-10-08 10:18] VITALS: BP 156/96
--- NOTE | 2020-10-08 10:31 | NUR ---
Pain Clinic Assessment: 1. History of Osteoarthritis: KNEES BACK History of Rheumatoid Arthritis: DENIES 2. Height: 5 ft. 7 in. 170.2 cm. Weight: 306.2 lb. oz. 138.892 kg. Patient's BMI: 47.9 3. Vital Signs: BP: 156/96 Pulse: 99 Resp: 20 Temp: 02 Sat: 97 ECG Mon: 4. Pain Intensity: 3 5. Fall Risk: Dizziness: N Needs help standing or walking: N Fallen in the last 3 months: N Fall risk comments: 6. Patient on Blood Thinner: None 7. History of Hypertension: N 8. Opioid Therapy greater than 6 weeks: Y Opiate Contract Signed: 06/30/18 9. Risk Assessment Tool Provided: 1-LOW 10. Functional Assessment Tool: 11. Recreational Drug Use: Never Drug Type: Tobacco Use: Never Smoker Tobacco Type: Amount or Packs/day: How Many Years: Alcohol Use: No Frequency: Quant:
== END ==
LOC: PAIN 09:40
PROVIDERS: ATTEND Clinical Nurse Specialist Adult Health
DX: M47.816 Spondylosis without myelopathy or radiculopathy, lumbar region (principal); M79.10 Myalgia, unspecified site; M17.0 Bilateral primary osteoarthritis of knee; F11.20 Opioid dependence, uncomplicated; Z85.3 Personal history of malignant neoplasm of breast; Z88.8 Allergy status to other drugs, medicaments and biological substances; Z79.899 Other long term (current) drug therapy

== ENCOUNTER → 2020-12-31 | Outpatient (CLI) | payer BC, OTHER | LOC: PAIN 11:17 → TELEPC 11:17 → PAIN 13:50 | PROVIDERS: ATTEND Clinical Nurse Specialist Adult Health | DX: Z76.0 Encounter for issue of repeat prescription (principal); G89.4 Chronic pain syndrome; M17.0 Bilateral primary osteoarthritis of knee; M79.7 Fibromyalgia; Z95.3 Presence of xenogenic heart valve; Z79.891 Long term (current) use of opiate analgesic; Z79.899 Other long term (current) drug therapy ==

== ENCOUNTER → 2021-02-25 | Outpatient (CLI) | payer BC, OTHER ==
[~2021-02-25] MED LIST changes: +ASA81BEC PO; +ENDOCET 7.5-321 EACH PO; +NARCAN4 MG NARES
== END ==
LOC: PAIN 02-21 13:04 → TELEPC 10:20
PROVIDERS: ATTEND Anesthesiology Pain Medicine
DX: G89.4 Chronic pain syndrome (principal); M47.816 Spondylosis without myelopathy or radiculopathy, lumbar region; E66.01 Morbid (severe) obesity due to excess calories; F32.9 Major depressive disorder, single episode, unspecified; Z79.891 Long term (current) use of opiate analgesic; Z79.899 Other long term (current) drug therapy

== ENCOUNTER → 2021-04-01 | Outpatient (CLI) | payer BC, OTHER ==
[~2021-04-01] VITALS: Ht 170.2 cm; Wt 140.2 kg
[~2021-04-01] MED LIST changes: +FASLODEX250 MG/5 M IM; +IBRANCE125 M1 PO; +PERCOCET 7.5-31 EAC1 PO
[2021-04-01 12:49] VITALS: BP 156/92
--- NOTE | 2021-04-01 12:52 | NUR ---
Pain Clinic Assessment: 1. History of Osteoarthritis: KNEES BACK History of Rheumatoid Arthritis: DENIES 2. Height: 5 ft. 7 in. 170.2 cm. Weight: 309.0 lb. oz. 140.162 kg. Patient's BMI: 48.4 3. Vital Signs: BP: 156/92 Pulse: 105 Resp: 16 Temp: 02 Sat: 98 ECG Mon: 4. Pain Intensity: 6 5. Fall Risk: Dizziness: N Needs help standing or walking: N Fallen in the last 3 months: N Fall risk comments: 6. Patient on Blood Thinner: None 7. History of Hypertension: N 8. Opioid Therapy greater than 6 weeks: Y Opiate Contract Signed: 06/30/18 9. Risk Assessment Tool Provided: 1-JOYCELYN 10. Functional Assessment Tool: 11. Recreational Drug Use: Never Drug Type: Tobacco Use: Never Smoker Tobacco Type: Amount or Packs/day: How Many Years: Alcohol Use: No Frequency: Quant:
== END ==
LOC: PAIN 09:56
PROVIDERS: ATTEND Clinical Nurse Specialist Adult Health
DX: G89.29 Other chronic pain (principal); M47.819 Spondylosis without myelopathy or radiculopathy, site unspecified; M19.90 Unspecified osteoarthritis, unspecified site; F34.89 Other specified persistent mood disorders; E66.01 Morbid (severe) obesity due to excess calories; Z85.3 Personal history of malignant neoplasm of breast; Z90.13 Acquired absence of bilateral breasts and nipples; Z79.82 Long term (current) use of aspirin; Z79.899 Other long term (current) drug therapy; Z88.8 Allergy status to other drugs, medicaments and biological substances; Z86.16 Personal history of COVID-19

== ENCOUNTER → 2021-06-24 | Outpatient (CLI) | payer BC, OTHER ==
[~2021-06-24] VITALS: Ht 170.2 cm; Wt 142.7 kg
[2021-06-24 10:40] VITALS: BP 133/97
--- NOTE | 2021-06-24 10:47 | NUR ---
Pain Clinic Assessment: 1. History of Osteoarthritis: KNEES BACK History of Rheumatoid Arthritis: DENIES 2. Height: 5 ft. 7 in. 170.2 cm. Weight: 314.6 lb. oz. 142.702 kg. Patient's BMI: 49.3 3. Vital Signs: BP: 133/97 Pulse: 110 Resp: 16 Temp: 02 Sat: 96 ECG Mon: 4. Pain Intensity: 7 w/activity 5. Fall Risk: Dizziness: N Needs help standing or walking: N Fallen in the last 3 months: N Fall risk comments: 6. Patient on Blood Thinner: None 7. History of Hypertension: N 8. Opioid Therapy greater than 6 weeks: Y Opiate Contract Signed: 06/30/18 9. Risk Assessment Tool Provided: 1-JOYCELYN 10. Functional Assessment Tool: 11. Recreational Drug Use: Never Drug Type: Tobacco Use: Never Smoker Tobacco Type: Amount or Packs/day: How Many Years: Alcohol Use: No Frequency: Quant:
== END ==
LOC: PAIN 07:47
PROVIDERS: ATTEND Clinical Nurse Specialist Adult Health
DX: M47.816 Spondylosis without myelopathy or radiculopathy, lumbar region (principal); M17.0 Bilateral primary osteoarthritis of knee; G89.29 Other chronic pain; E66.01 Morbid (severe) obesity due to excess calories; Z86.16 Personal history of COVID-19; Z88.8 Allergy status to other drugs, medicaments and biological substances; Z79.899 Other long term (current) drug therapy; Z79.82 Long term (current) use of aspirin